=== PATIENT | male | born 2000 | race African-American/Black ===

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

== ENCOUNTER 2023-10-29 02:43 | Inpatient (IN) ==
--- NOTE | 2023-10-29 03:32 | Emergency Department Note ---
Impression & Plan Anxiety, Depression, Hallucinations ED Provider Note ED Provider Note NAME: TATY CANALES AGE:23 SEX: Male : 2000 ARRIVES VIA: EMS INFORMANT: Patient ED PROVIDER(s): Elana Sequeira DO CHIEF COMPLAINT: Anxiety HPI: This is a 23-year-old male presents emergency department stating he was told he had to come here by cook's assistant after he called 911 due to concern for increased anxiety. Patient with recent inpatient mental health treatment and initiation of Zoloft. Patient admits to both anxiety and depression. He admits to history of SI but no prior attempt. Patient states "I am tired of dealing with all of it" and describes frustration over trying to arrange job interviews. Patient admits to use of tobacco products, alcohol, and marijuana to cope with his anxiety and depression. PAST MEDICAL HISTORY:See Below PAST SURGICAL HISTORY:See Below FAMILY HISTORY:See Below SOCIAL HISTORY:See Below HOME MEDICATIONS:See Below ALLERGIES:See Below VITALS:See Below PHYSICAL EXAMINATION: GENERAL: alert, anxious appearing, well nourished, no distress, non-toxic EYE EXAM: normal conjunctiva, PERRL and EOM's grossly intact NECK: supple, no nuchal rigidity, FROM LUNGS: Clear to auscultation. Normal chest wall mechanics, no w/r/r HEART: no murmurs, S1 normal and S2 normal ABDOMEN: abdomen soft, non-tender, normo-active bowel sounds, no masses, no rebound or guarding. SKIN: no rashes, petechiae, orbruising UPPER EXTREMITIES: upper extremities are grossly normal. FROM, nml pulses b/l. LOWER EXTREMITIES: No pitting edema. FROM, nml pulses b/l. NEURO EXAM: Normal sensorium, cranial nerves II-XII grossly intact, normal speech, no facial droop,nogross weakness of arms, no gross weakness of legs. Gross sensation intact. No ataxia. Vital Signs: reviewed and remarkable Differential Diagnosis: mood disorder, suicidal ideation, anxiety, depression, substance abuse, toxidrome, infection, hypoglycemia, electrolyte abnormalities, ICH as well as others were considered. MEDICAL DECISION MAKING: This is a 23-year-old male who presents due to concern for anxiety and depression. Upon discussion with case management he also admitted to command hallucinations. He admits to suicidal ideation however no plan and no prior attempt. After discussion with him I did involve case management who came and evaluated patient bedside as well. They did remember the patient from 2 weeks ago when he was placed inpatient due to acute psychosis. Labs and urine collected and sent per protocol. These were reassuring. Patient does admit to marijuana use as a coping strategy for his anxiety and depression as well as the hallucinations. Patient does not appear actively intoxicated. Case management refer the patient to [facility] who evaluated the patient and accepted him to their unit for additional inpatient mental health treatment. Consultation(s): 0335: Discussed with case management who did see the patient at bedside. Patient also admits to command hallucinations. ER Treatment Provided: See below Diagnostics Interpreted By Me: -Laboratory studies: As stated above and show below. Triage Nursing Note Reviewed Prior/Outside Records Reviewed Past Med/Surg History Problem List (Updated 10/29/23 @ 23:05 by Elana Sequeira DO) Hallucinations (Acute) Depression (Acute) Psychosis (Acute) Brain tumor (benign) Post traumatic stress disorder (PTSD) Bipolar disorder (Acute) Asthma with acute exacerbation (Acute) Allergic rhinitis Anxiety (Acute) Atopic dermatitis Attention deficit disorder without hyperactivity Extrinsic asthma Oppositional defiant disorder Medical History Depression with suicidal ideation Depression Suicidal ideations No chronic diseases present Surgical History Status post tracheostomy No significant past surgical history Family History Unknown Adopted Social History Smoking Status: Current some day smoker Tobacco Type: E-cigarettes / Vaping Hx Substance Use: Yes Preferred Language: Cypriot Communication Ability: Effective 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: No Beliefs That Will Affect Care: None 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 Feels Safe at Home: Yes Gender Identity: Male Assistive Devices: None Allergies Allergies Allergy/AdvReac Type Severity Reaction Status Date / Time animal dander Allergy Intermediate CONGESTION, Verified 10/29/23 03:06 COUGH, SHORT OF BREATH WITH PROLONGED EXPOSURE pollen extracts Allergy Intermediate CONGESTION, Verified 10/29/23 03:06 COUGH, SHORT OF BREATH WITH PROLONGED EXPOSURE Home Meds Home Medications Medication Instructions Recorded Confirmed nicotine (polacrilex) 4 mg gum 4 mg PO DIRECTED PRN Smoking 10/29/23 10/29/23 Cessation sertraline 50 mg tablet 50 mg PO DAILY 10/29/23 10/29/23 Results & Data (ED) Vital Signs Vital Signs - 24 hr 10/29/23 02:48 Temperature 36.8 C Temperature Source Axillary Pulse Rate 84 Respiratory Rate 18 Respiratory Effort / Characteristics Non-Labored Spontaneous Respiratory Depth Normal Blood Pressure 129/93 Blood Pressure Mean 105 Pulse Oximetry 99 Oxygen Delivery Method Room Air Sepsis Recent Fever Within 48 Hours No Sepsis New/Unexplained Change in Mental Status N/A Sepsis Action Taken by Nursing No Action Required Laboratory Data 10/29/23 03:55 10/29/23 03:55 Lab Results 10/29/23 10/29/23 Range/Units 03:55 03:59 WBC 8.12 (4.8-10.8) K/ul RBC 5.63 (4.70-6.10) M/uL Hgb 16.9 (14.0-18.0) g/dl Hct 49.0 (42.0-52.0) % MCV 87.0 (80.0-100.0) fL MCH 30.0 (25.0-34.0) pg MCHC 34.5 (32.0-36.0) g/dL RDW Std Deviation 40.9 (36.4-46.3) fL RDW Coeff of [place] 13.0 (11.5-14.5) % Plt Count 207 (130-400) K/uL MPV 9.4 (9.4-12.4) fL Immature Gran % (Auto) 0.2 % Neut % (Auto) 52.2 % Lymph % (Auto) 34.5 % [place] % (Auto) 8.4 % Eos % (Auto) 4.1 % Baso % (Auto) 0.6 % Neut # (Auto) 4.24 (1.40-6.50) K/uL Lymph # (Auto) 2.80 (1.20-3.40) K/uL [place] # (Auto) 0.68 H (0.11-0.59) K/uL Eos # (Auto) 0.33 (0.00-0.50) K/uL Baso # (Auto) 0.05 (0.00-0.20) K/uL Immature Gran # (Auto) 0.02 (0.01-0.20) K/uL Sodium 140 (136-145) mmol/L Potassium 3.7 (3.5-5.1) mmol/L Chloride 106 (98-107) mmol/L Carbon Dioxide 25 (21-32) mmol/L Anion Gap 9 (3-11) BUN 24 H (6-23) mg/dl Creatinine 1.09 (0.6-1.4) mg/dl Est Cr Clr Drug Dosing 100.2 ml/min Est GFR ( Amer) 111.9 ml/min Est GFR (Non-Af Amer) 96.5 ml/min BUN/Creatinine Ratio 22.0 H (10-20) Glucose 90 (70-99(Fasting)) mg/dl Calcium 10.1 (8.6-10.3) mg/dl Total Bilirubin 0.7 (0.2-1.0) mg/dl AST 23 (13-39) U/L ALT 19 (7-52) U/L Alkaline Phosphatase 105 H (34-104) U/L Total Protein 7.6 (6.0-8.3) gm/dl Albumin 4.8 (3.4-5.0) gm/dl Globulin 2.8 (2.5-4.0) gm/dl Albumin/Globulin Ratio 1.7 (0.9-2) TSH 2.525 (0.300-4.500) uIu/ml Urine Color Yellow Urine Appearance Clear (Clear) Urine pH 6.0 (4.5-7.5) Ur Specific [place] 1.030 (1.000-1.030) Urine Protein Negative (Negative) Urine Glucose (UA) Negative (Negative) Urine Ketones Negative (Negative) Urine Blood Negative (Negative) Urine Nitrite Negative (Negative) Urine Bilirubin Negative (Negative) Urine Urobilinogen Positive H (Negative) Ur Leukocyte Esterase Negative (Negative) Salicylates < 3.0 L (3.0-30) mg/dl Urine Opiates Screen Neg (Neg) Ur Methadone, Qual Neg (Neg) Urine Fentanyl Screen Neg (Neg) Acetaminophen < 3 L (10-30) ug/ml Urine Barbiturates Neg (Neg) Ur Phencyclidine (PCP) Neg (Neg) U Amphetamin/Meth Scrn Neg (Neg) MDMA (Ecstasy) Screen Neg (Neg) U Benzodiazepines Scrn Neg (Neg) Ur Cocaine Metabolite Neg (Neg) U Marijuana (THC) Screen Pos H (Neg) Ethyl Alcohol mg/dL < 10.0 (<10.0) mg/dl SARS-CoV-2, RNA, NAAT NEGATIVE (NEGATIVE) Administered Medications Miscellaneous (Remove Nicoderm Patch) 1 each N/A DAILY@0859 [facility] Stop: 11/28/23 08:58 Last Admin: 10/29/23 11:00 Dose: Not Given Documented By: EMRE Nicotine (Nicotine 14 Mg/24 Hr Patch) 1 patch TD QAM [facility] Stop: 11/28/23 08:59 Last Admin: 10/29/23 10:59 Dose: 1 patch Documented By: EMRE Olanzapine (Olanzapine 5 Mg Tablet) 5 mg PO BID [facility] Stop: 11/28/23 08:59 Last Admin: 10/29/23 21:04 Dose: 5 mg Documented By: Admin: 10/29/23 11:00 Dose: 5 mg Documented By: EMRE Discharge Plan Visit Data Chief Complaint: Anxiety Stated Complaint: Anxiety ED Provider: Snow Dobbs Discharge Problem: Anxiety, Depression, Hallucinations Patient Disposition: Admitted As Inpatient Discharge Instructions Interventions: ED Discharge Assessment Last Done: 10/29/23 07:47
[2023-10-29 04:19] LABS: Appearance Urine Clear (Clear); Bilirubin Urine Negative (Negative); Blood Urine Negative (Negative); Color Urine Yellow; Glucose Urine UA Negative (Negative); Ketones Urine Negative (Negative); Leukocyte Esterase Urine Negative (Negative); Nitrite Urine Negative (Negative); Protein Urine Negative (Negative); Urobilinogen Urine Positive (Negative)
[2023-10-29 04:19] LABS: Basophils # (auto) 0.05 K/uL (0.00-0.20); Basophils % (auto) 0.6 %; Eosinophils # (auto) 0.33 K/uL (0.00-0.50); Eosinophils % (auto) 4.1 %; Hemoglobin 16.9 g/dl (14.0-18.0); Immature Granulocytes # (auto) 0.02 K/uL (0.01-0.20); Immature Granulocytes % (auto) 0.2 %; Lymphocytes % (auto) 34.5 %; Mean Corpuscular Hgb Conc 34.5 g/dL (32.0-36.0); Mean Platelet Volume 9.4 fL (9.4-12.4); Monocytes # (auto) 0.68 K/uL (0.11-0.59); Monocytes % (auto) 8.4 %; Neutrophils # (auto) 4.24 K/uL (1.40-6.50); Neutrophils % (auto) 52.2 %; Platelet Count 207 K/uL (130-400); RDW Standard Deviation 40.9 fL (36.4-46.3); Red Blood Count 5.63 M/uL (4.70-6.10); White Blood Count 8.12 K/ul (4.8-10.8)
[2023-10-29 04:35] LABS: Albumin Level 4.8 gm/dl (3.4-5.0); Calcium 10.1 mg/dl (8.6-10.3)
[2023-10-29 04:43] LABS: Creatinine Clr Calc Pharmacy 100.2 ml/min; Est GFR (African American) 111.9 ml/min; Est GFR (Non-African American) 96.5 ml/min; Potassium 3.7 mmol/L (3.5-5.1)
[2023-10-29 04:52] LABS: Albumin Globulin Ratio 1.7 (0.9-2); Bilirubin,Total 0.7 mg/dl (0.2-1.0); Globulin 2.8 gm/dl (2.5-4.0); Thyroid Stimulating Hormone 2.525 uIu/ml (0.300-4.500); Total Protein 7.6 gm/dl (6.0-8.3)
[2023-10-29 05:43] LABS: Acetaminophen < 3 ug/ml (10-30); Salicylate < 3.0 mg/dl (3.0-30)
[2023-10-29 05:43] LABS: Amphetamines+Metham, Urine Neg (Neg); Barbiturates, Urine Neg (Neg); Benzodiazepine, Urine Neg (Neg); Cocaine, Urine Neg (Neg); Fentanyl, Urine Neg (Neg); MDMA (Ecstacy), Urine Neg (Neg); Marijuana, Urine Pos (Neg); Methadone, Urine Neg (Neg); Opiate, Urine Neg (Neg); Phencyclidine, Urine Neg (Neg)
[2023-10-29] MEDS ORDERED: hydrOXYzine HCl 25 MG TAB PO PRN (08:05)
[2023-10-29] MEDS ORDERED: BISMUTH SUBSALICYLATE LIQD 236 ML PO PRN (08:05)
[2023-10-29] MEDS ORDERED: SODIUM CHLORIDE 0.65% NA SOLN 45 ML (OCEAN) PRN (08:05)
[2023-10-29] MEDS ORDERED: MAGNESIUM HYDROXIDE SUSP 30 ML UDC PO PRN (08:05)
[2023-10-29] MEDS ORDERED: ALUMINUM/MAGNESIUM SUSP 30 ML UDC PO PRN (08:05)
--- NOTE | 2023-10-29 09:16 | History & Physical ---
Date of Service October 29, 2023 Impression / Recommendations Impression CRISTOBAL CANALES is a 23-year-old M who is currently without housing, has a history of attachment issues/PTSD, bipolar disorder, impulsivity related to hx of ADHD, and was admitted on 10/29/23 06:47 on a 201 voluntary commitment for psychosis. Diagnostically consistent with unspecified psychosis with broad differential including primary psychotic disorder (schizophrenia spectrum) vs mixed or tip episode of BPAD (hx of BPAD per chart, reported poor sleep in last 24 hours but presents as very tired, doesn't present with any other classic signs of acute tip given no psychomotor activation/grandiosity or rapid speech except is having hyperreligious beliefs/delusions) vs substance-induced psychosis (UDS positive for cannabis, recently at the [facility] and reportedly only discharged on an SSRI with improvement which is more suggestive of substance-induced) vs trauma-related (hx PTSD but unlikely given level of psychosis, thought blocked, paranoia). He was unable to participate in any type of meaningful conversation about his medications and psychiatric medication options for treating psychosis. For now will hold sertraline given possibility for mixed/manic episode pending records from the [facility] and will start olanzapine for psychosis and to help with sleep. Will get fasting lipid and glucose labwork and attempted AIMS, no evidence of any abnormal or involuntary movements at baseline, current score of 0. MNPR due to extreme paranoia with inability to tolerate a roommate, psychosis, delusions Overall I spent a total of 55 minutes for this admission including review of chart records, review of labwork, direct evaluation of the patient, counseling the patient, ordering medication, risk assessment, discussion with the psychiatric liason RN and documentation in the electronic health record. (1) Psychosis: Psychosis type: unspecified psychosis type Qualified Code(s): F29 - Unspecified psychosis not due to a substance or known physiological condition (2) Post traumatic stress disorder (PTSD): (3) Bipolar disorder: (4) Anxiety: Plan 10/29/2023: The patient was admitted to the [facility]) on q15 min checks (behavioral with suicide precautions) for safety. The patient will participate in group, recreational, and milieu therapies and will be offered additional individual and family sessions as clinically appropriate. -Start olanzapine 5mg BID -Hold sertraline for now -Haldol 5mg po daily prn and ativan 2mg po daily prn for acute agitation/psychosis Inventory Assets Strengths: willing to get treatment, motivated to get a job Needs: safety and stabilization, medication adjustment, additional coping skills, increased outpatient services Suicide Risk Level Suicide Risk Level: Moderate (q15 min suicide checks) (denied SI but with psychosis, confusion, delusions and history of prior attempts vs gestures, feels safe in the hospital) Suicide Risk Level Comments: Risk Factors Assessment Male: Yes : No Do You Have Access To A Gun?: Yes (unknown, will have to assess again as his thought process becomes more orga) Mental Health Diagnoses: Yes Previous Attempt: Yes Previous Psychiatric Hospitalization: Yes Psychiatric History Identifying Data CRISTOBAL CANALES is a 23-year-old M who is currently without housing, has a history of attachment issues/PTSD, bipolar disorder, impulsivity related to hx of ADHD, and was admitted on 10/29/23 06:47 on a 201 voluntary commitment for psychosis. Chief Complaint "Heaven is at hand" History of Present Illness Cristobal was admitted after presenting voluntarily to the emergency room at recommendation of lab aide after calling 911 and requesting help for increased anxiety. In the emergency room he reported feeling overwhelmed by daily tasks such as arranging job interviews and feeling tired "of dealing with all of it". Per chart review he was in the emergency room about two weeks ago and at that time was responding to internal stimuli, showing signs of acute psychosis, and was paranoid including only communicating with the ED CM via writing due to his concerns that the nurses were listening to their conversations. He was admitted the [facility] on a 302 commitment and apparently while there started on sertraline. Since leaving the [facility] he has not engaged in any aftercare, unclear if anything was arranged for him. On presentation to the ED overnight CM notes indicate that he was demonstrating symptoms of thought blocking, seemed to be responding to internal stimuli, was "trying to figure out the puzzle of what God has planned for him in life", and seemed to have some confusion. He also reported a lack of sleep in the last 24 hours. On admission today he communicates with me initially via non-verbal hand signals (gives a thumbs up, shakes his hand to indicate so-so) and attempts to mouth words to me (I couldn't interpret them). When offered the option to write he acc epted pen and paper. When asked about the reasons for his hospitalization, mood, recent stressors he writes "I have to be hidalgo", "I don't wanna mess up" and "Zachariahn is a hand". He was unable to participate with any further assessment but was agreeable to going to the main area of the unit so he could have breakfast and asked me in a whispered voice for water when asked about desire for a beverage. Unable to assess psychiatric ROS. Reportedly has been taking sertraline 50mg daily since leaving the [facility]. Past Psychiatric History Current Psychiatric Diagnosis: PTSD, Bipolar Outpatient Services: unknown Previous Psych Admissions: multiple last at [facility] in mid-October last on [facility] in Mar 2021 for SI Do You Have Access To A Gun?: Yes (unknown, will have to assess again as his thought process becomes more orga) History of Previous Suicide Attempt: Yes Describe Attempts in the Past: unclear-hx of near attempts via OD (had in his mouth) and hx cutting Past Medication Trials: per chart review: multiple that he cannot recall, Vraylar caused nausea, Depakote, Prozac has been main antidepressant given compliance issues and long half life, trazodone, Geodon, Abilify Allergies Allergy/AdvReac Type Severity Reaction Status Date / Time animal dander Allergy Intermediate CONGESTION, Verified 10/29/23 03:06 COUGH, SHORT OF BREATH WITH PROLONGED EXPOSURE pollen extracts Allergy Intermediate CONGESTION, Verified 10/29/23 03:06 COUGH, SHORT OF BREATH WITH PROLONGED EXPOSURE Home Medications Medication Instructions Recorded Confirmed Type nicotine (polacrilex) 4 mg gum 4 mg PO DIRECTED PRN Smoking 10/29/23 10/29/23 History Cessation sertraline 50 mg tablet 50 mg PO DAILY 10/29/23 10/29/23 History Family History Family History of: Doesn't Know Family Mental Health History Comment: adopted Alcohol History Hx of Alcohol Use Over the Past 12 Months: No Smoking Use Have You Smoked or Used Tobacco Products in the Last 30 Days: Yes tobacco type: cigarettes Smoking Status: Current some day smoker Smoking packs per day: 0.5 Substance History Hx of Prescription Med Misuse Over the Past 12 Months: No Hx of Over the Counter Med Misuse Over the Past 12 Months: No Hx of Inhalent Misuse Over the Past 12 Months: No Hx of Organic Substance Use Over the Past 12 Months: Yes (Marijuana, last use unknown) Hx of Illegal Substances/Street Drug Use Over Past 12 Months: No Problems as a Result of Past Substance Use: None Identified UDS positive for cannabis Personal History Living Arrangements: Homeless Born In: [place] area Employment Status: Unemployed Beliefs That Will Affect Care: None Hx Traumatic Life Events: Yes (early neglect, won't elaborate) Patient History Medical History Depression with suicidal ideation Depression Suicidal ideations No chronic diseases present Surgical History Status post tracheostomy No significant past surgical history Family History Unknown Adopted Social History Smoking Status: Current some day smoker Tobacco Type: E-cigarettes / Vaping Hx Substance Use: Yes Preferred Language: Persian Communication Ability: Effective Practice Administrator Required: No Beliefs That Will Affect Care: None 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 Feels Safe at Home: Yes Gender Identity: Male Assistive Devices: None Review of Systems Review of Systems: Unobtainable due to mental health condition Physical Exam Psychiatric: Orientation: alert, oriented to person and oriented to place Apperance: appropriately dressed and + disheveled Eye Contact: + poor eye contact Motor Behavior: no abnormal motor movements Speech: + abnormal rate/rhythm/volume of speech (whispered, brief) Affect: + anxious affect Mood: + anxious mood Thought Process: + thought blocking and + looseness of associations Thought Content: + paranoid, + delusions and + persecution Suicidal Thoughts: denies suicidal thoughts Homicidal Thoughts: denies homicidal thoughts Hallucinations: + auditory hallucinations Insight: + limited insight Judgment: + limited judgement Vital Signs (Past 24 Hours): Last Vital Signs Temp 36.8 C 10/29/23 08:23 Pulse 80 10/29/23 08:23 Resp 16 10/29/23 08:23 BP 127/84 10/29/23 08:23 Pulse Ox 96 10/29/23 08:23 O2 Del Method Room Air 10/29/23 08:23 Exam Statement: A physical exam was performed in the ED by Dr. Pheasant for the purposes of medical clearance. I accept that physical as correct and adequate for the purposes of the inpatient physical exam. Results & Data ([facility]) Laboratory Results Laboratory Results - last 24 hr 10/29/23 10/29/23 03:55 03:59 WBC 8.12 RBC 5.63 Hgb 16.9 Hct 49.0 MCV 87.0 MCH 30.0 MCHC 34.5 RDW Std Deviation 40.9 RDW Coeff of [place] 13.0 Plt Count 207 MPV 9.4 Immature Gran % (Auto) 0.2 Neut % (Auto) 52.2 Lymph % (Auto) 34.5 [place] % (Auto) 8.4 Eos % (Auto) 4.1 Baso % (Auto) 0.6 Neut # (Auto) 4.24 Lymph # (Auto) 2.80 [place] # (Auto) 0.68 H Eos # (Auto) 0.33 Baso # (Auto) 0.05 Immature Gran # (Auto) 0.02 Sodium 140 Potassium 3.7 Chloride 106 Carbon Dioxide 25 Anion Gap 9 BUN 24 H Creatinine 1.09 Est Cr Clr Drug Dosing 100.2 Est GFR ( Amer) 111.9 Est GFR (Non-Af Amer) 96.5 BUN/Creatinine Ratio 22.0 H Glucose 90 Calcium 10.1 Total Bilirubin 0.7 AST 23 ALT 19 Alkaline Phosphatase 105 H Total Protein 7.6 Albumin 4.8 Globulin 2.8 Albumin/Globulin Ratio 1.7 TSH 2.525 Urine Color Yellow Urine Appearance Clear Urine pH 6.0 Ur Specific [place] 1.030 Urine Protein Negative Urine Glucose (UA) Negative Urine Ketones Negative Urine Blood Negative Urine Nitrite Negative Urine Bilirubin Negative Urine Urobilinogen Positive H Ur Leukocyte Esterase Negative Salicylates < 3.0 L Urine Opiates Screen Neg Ur Methadone, Qual Neg Urine Fentanyl Screen Neg Acetaminophen < 3 L Urine Barbiturates Neg Ur Phencyclidine (PCP) Neg U Amphetamin/Meth Scrn Neg MDMA (Ecstasy) Screen Neg U Benzodiazepines Scrn Neg Ur Cocaine Metabolite Neg U Marijuana (THC) Screen Pos H U Marijuana THC Carboxy Pending Drug Screen Comment Pending Ethyl Alcohol mg/dL < 10.0 SARS-CoV-2, RNA, NAAT NEGATIVE Current Inpatient Medications Current Inpatient Medications: Current Inpatient Medications Acetaminophen (Acetaminophen 325 Mg Tab) 650 mg PO Q4H PRN PRN Reason: Headache or Minor Fever Stop: 11/28/23 08:04 Al Hydrox/Mg Hydrox/Simethicone (Aluminum/Magnesium Susp 30 Ml Udc) 30 ml PO Q4H PRN PRN Reason: GI Upset Stop: 11/28/23 08:04 Bismuth Subsalicylate (Bismuth Subsalicylate Liqd 236 Ml) 15 ml PO PRN PRN PRN Reason: Loose Stool Stop: 11/28/23 08:04 Hydroxyzine HCl (Hydroxyzine Hcl 25 Mg Tab) 50 mg PO HSZ PRN PRN Reason: Insomnia Stop: 11/28/23 08:04 Hydroxyzine HCl (Hydroxyzine Hcl 25 Mg Tab) 25 mg PO Q4H PRN PRN Reason: Anxiety Stop: 11/28/23 08:04 Magnesium Hydroxide (Magnesium Hydroxide Susp 30 Ml Udc) 30 ml PO DAILY PRN PRN Reason: Constipation Stop: 11/28/23 08:04 Miscellaneous (Remove Nicoderm Patch) 1 each N/A DAILY@0859 [facility] Stop: 11/28/23 08:58 Nicotine (Nicotine 14 Mg/24 Hr Patch) 1 patch TD QAM [facility] Stop: 11/28/23 08:59 Olanzapine (Olanzapine 5 Mg Tablet) 5 mg PO BID [facility] Stop: 11/28/23 08:59 Sodium Chloride (Sodium Chloride 0.65% Na Soln 45 Ml ([place])) 1 - 2 sprays NA PRN PRN PRN Reason: Nasal Dryness/Congestion Stop: 11/28/23 08:04
[2023-10-29] MEDS: NICOTINE 14 MG/24 HR PATCH TD SCH (10:59)
[2023-10-29] MEDS: OLANZapine 5 MG TABLET PO SCH (11:00)
[2023-10-29] MEDS ORDERED: haloperidoL 5 MG TAB PO PRN (11:36)
[2023-10-29] MEDS ORDERED: LORazepam 1 MG TAB PO PRN (11:36)
--- NOTE | 2023-10-29 14:13 | Emergency Department Note ---
ED Visit Note I received this patient in signout at the change of shift from Dr. Elana Sequeira pending evaluation by [facility]. for admission on a voluntary basis. The 201 was signed. The patient was accepted for admission. He was transferred to their unit without incident. Please refer to previous documentation for further detail of the history, physical and visit. .
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
[2023-10-30] MEDS: ACETAMINOPHEN 325 MG TAB PO PRN (20:02)
[2023-10-30] MEDS: ARIPiprazole 10 MG TAB PO SCH (21:21)
[2023-10-30] MEDS: LORazepam 1 MG TAB PO SCH (21:22)
[2023-10-31 08:16] LABS: Chol HDL Ratio 2.7 (0-5)
[2023-10-31 08:33] LABS: Estimated Average Glucose 103 mg/dl; Hemoglobin A1C 5.2 % (4.5-5.6)
[2023-10-31 09:41] LABS: Marijuana Quant, GCMS Urine 62 ng/mL (<5)
[2023-10-31] MEDS ORDERED: ALBUTEROL HFA 8 GM INHALER INH PRN (12:04)
[2023-10-31] MEDS ORDERED: LORazepam 1 MG TAB PO PRN (12:08)
[2023-10-31] MEDS: SODIUM CHLORIDE 0.65% NA SOLN 45 ML (OCEAN) SCH (12:55)
[2023-10-31] MEDS: CETIRIZINE HCL 10 MG TABLET PO SCH (13:00)
[2023-10-31] MEDS: guaiFENesin 600 MG TABCR PO SCH (13:00)
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
[2023-10-31] MEDS: ARIPiprazole 15 MG TAB PO SCH (21:03)
[2023-10-31] MEDS: OLANZapine 5 MG TABLET PO SCH (21:03)
[2023-10-31] MEDS: LORazepam 0.5 MG TAB PO SCH (21:09)
[2023-10-31] MEDS: hydrOXYzine HCl 25 MG TAB PO PRN (22:19)
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
[2023-11-01] MEDS: SERTRALINE HCL 50 MG TABLET PO SCH (14:25)
[2023-11-01] MEDS: ARIPiprazole 10 MG TAB PO SCH (20:38)
[2023-11-02] MEDS ORDERED: guaiFENesin 600 MG TABCR PO PRN (12:12)
[2023-11-02] MEDS: NICOTINE POLACRILEX 2 MG GUM MT PRN (13:01)
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
[2023-11-03] MEDS: ARIPiprazole 400 MG PRE-FILLED SYRINGE IM SCH (11:01)
--- NOTE | 2023-11-03 11:02 | Discharge Summary ---
Date of Service November 03, 2023 History of Present Illness Cristobal was admitted after presenting voluntarily to the emergency room at recommendation of applications instructor after calling 911 and requesting help for increased anxiety. In the emergency room he reported feeling overwhelmed by daily tasks such as arranging job interviews and feeling tired "of dealing with all of it". Per chart review he was in the emergency room about two weeks ago and at that time was responding to internal stimuli, showing signs of acute psychosis, and was paranoid including only communicating with the ED CM via writing due to his concerns that the nurses were listening to their conversations. He was admitted the [facility] on a 302 commitment and apparently while there started on sertraline. Since leaving the [facility] he has not engaged in any aftercare, unclear if anything was arranged for him. On presentation to the ED overnight CM notes indicate that he was demonstrating symptoms of thought blocking, seemed to be responding to internal stimuli, was "trying to figure out the puzzle of what God has planned for him in life", and seemed to have some confusion. He also reported a lack of sleep in the last 24 hours. On admission today he communicates with me initially via non-verbal hand signals (gives a thumbs up, shakes his hand to indicate so-so) and attempts to mouth words to me (I couldn't interpret them). When offered the option to write he accepted pen and paper. When asked about the reasons for his hospitalization, mood, recent stressors he writes "I have to be hidalgo", "I don't wanna mess up" and "Heaven is a hand". He was unable to participate with any further assessment but was agreeable to going to the main area of the unit so he could have breakfast and asked me in a whispered voice for water when asked about desire for a beverage. Unable to assess psychiatric ROS. Reportedly has been taking sertraline 50mg daily since leaving the [facility]. Physical Exam Mental Examination Appearance: Unkempt Eye Contact: Maintains Eye Contact Motor Behavior: Unremarkable Speech: Normal Mood: Euthymic Affect: Congruent and Constricted Thought Process: Intact (slightly disorganized at times) Thought Content: Intact Hallucinations: Auditory Insight: Poor (improved) Judgement: Poor Vital Signs (Past 24 Hours) Last Vital Signs Temp 36.5 C 11/03/23 06:42 Pulse 92 H 11/03/23 06:43 Resp 16 07/31/24 06:42 BP 128/85 11/03/23 06:43 Pulse Ox 96 10/29/23 08:23 O2 Del Method Room Air 10/29/23 08:23 Principal Diagnosis Complex PTSD Psychiatric Data See daily stay summary. In short, safety was maintained and the patient was cooperative with care. Medication changes included starting Abilify 20mg HS and transitioning to Maintena 400mg [id number], restarting home sertraline 50mg daily and they tolerated this well. A family session was held and safety plan was completed prior to discharge. Counselled about CPTSD, CBT, and treatment strategies. Day of Discharge Assessment Today the patient voices readiness for discharge. They note improvement in mood and deny thoughts to harm self or others. Thoughts remain organized and they are improved from admission. There is no evidence of psychosis. They agree to take mediations as prescribed and keep follow-up appointments. They are stable for discharge to outpatient level of care. Transition of Care Transition Of Care Record: was reviewed with the patient Advance Directives Advance Directives Information Provided: Yes Advance Directives: No Mental Health Advance Directive: No Advance Directives on File: No Living Will: No Power of Mill Tender: No Advance Directives Reason:: Declines as Mental Health Visit. Suicide Risk Level Suicide Risk Level Comments: Risk Factors Assessment Male: Yes : No Do You Have Access To A Gun?: Yes (unknown, will have to assess again as his thought process becomes more orga) Mental Health Diagnoses: Yes Previous Attempt: Yes Previous Psychiatric Hospitalization: Yes Discharge Data Lab Results 10/29/23 10/29/23 10/31/23 03:55 03:59 07:22 WBC 8.12 RBC 5.63 Hgb 16.9 Hct 49.0 MCV 87.0 MCH 30.0 MCHC 34.5 RDW Std Deviation 40.9 RDW Coeff of Mariana 13.0 Plt Count 207 MPV 9.4 Immature Gran % (Auto) 0.2 Neut % (Auto) 52.2 Lymph % (Auto) 34.5 Motley % (Auto) 8.4 Eos % (Auto) 4.1 Baso % (Auto) 0.6 Neut # (Auto) 4.24 Lymph # (Auto) 2.80 Motley # (Auto) 0.68 H Eos # (Auto) 0.33 Baso # (Auto) 0.05 Immature Gran # (Auto) 0.02 Sodium 140 Potassium 3.7 Chloride 106 Carbon Dioxide 25 Anion Gap 9 BUN 24 H Creatinine 1.09 Est Cr Clr Drug Dosing 100.2 Est GFR ( Amer) 111.9 Est GFR (Non-Af Amer) 96.5 BUN/Creatinine Ratio 22.0 H Glucose 90 Estimat Average Glucose 103 Hemoglobin A1c 5.2 Calcium 10.1 Total Bilirubin 0.7 AST 23 ALT 19 Alkaline Phosphatase 105 H Total Protein 7.6 Albumin 4.8 Globulin 2.8 Albumin/Globulin Ratio 1.7 Triglycerides 70 Cholesterol 157 LDL Cholesterol, Calc 85 VLDL Cholesterol, Calc 14 HDL Cholesterol 58 Cholesterol/HDL Ratio 2.7 TSH 2.525 Urine Color Yellow Urine Appearance Clear Urine pH 6.0 Ur Specific Pevely 1.030 Urine Protein Negative Urine Glucose (UA) Negative Urine Ketones Negative Urine Blood Negative Urine Nitrite Negative Urine Bilirubin Negative Urine Urobilinogen Positive H Ur Leukocyte Esterase Negative Salicylates < 3.0 L Urine Opiates Screen Neg Ur Methadone, Qual Neg Urine Fentanyl Screen Neg Acetaminophen < 3 L Urine Barbiturates Neg Ur Phencyclidine (PCP) Neg U Amphetamin/Meth Scrn Neg MDMA (Ecstasy) Screen Neg U Benzodiazepines Scrn Neg Ur Cocaine Metabolite Neg U Marijuana (THC) Screen Pos H U Marijuana THC Carboxy 62 H Drug Screen Comment SEE NOTE Ethyl Alcohol mg/dL < 10.0 SARS-CoV-2, RNA, NAAT NEGATIVE Hospital Course (1) Complex posttraumatic stress disorder: (2) Bipolar disorder: Plan 11/02/2023: Discontinue lorazepam. Continue Abilify 20 mg at night. Planning towards long-acting injection. Administer international trauma questionnaire. 11/01/2023: Discontinue olanzapine. Continue lorazepam. Increase Abilify to 20 mg at bedtime. Start sertraline 50 mg daily. Administer dissociative symptom scale and adverse childhood experiences scale. 10/31/2023: Increase Abilify to 15 mg at bedtime. Decrease olanzapine to 5 mg at bedtime. Decrease lorazepam to 0.5 mg at bedtime. 10/30/2023: Start Abilify 10 mg at bedtime. Start lorazepam 1 mg at bedtime. Labs: A1c, fasting lipid panel. to establish CM referral. 10/29/2023: The patient was admitted to the [facility] ([facility]) on q15 min checks (behavioral with suicide precautions) for safety. The patient will participate in group, recreational, and milieu therapies and will be offered additional individual and family sessions as clinically appropriate. -Start olanzapine 5mg BID -Hold sertraline for now -Haldol 5mg po daily prn and ativan 2mg po daily prn for acute agitation/psychosis Mental Health & Subst Abuse Tx Psychiatrist Name of Psychiatrist: Rafael Therapist Name of Therapist: N/A Mounter Saxophones Name of Mounter Saxophones: [facility] - Phone Number for Mounter Saxophones: Case Management Appointment Comment: Your BCM will follow up with you in the community. Post Discharge Appointments Primary Care Physician Name Of Family Doctor/PCP: Azar Davies [facility] Date of Future Appointment with PCP: 11/10/23 Time of Appointment with PCP: 10:45 AM arrival Provider Appointment Comment: Deniz Garcia Family Freelance Writer Name of Specialist: Azar PCP- Karuna FERREIRA) Apryl Garcia Phone Number for Specialist: [phone] Date of Appointment with Specialist: 12/01/23 Time of Appointment with Specialist: 1:40 Specialty Appointment Comment: please arrive at 1:25 and bring Sangita Madrigalna with you to this appt. Contact Information Discharge Discharge Address: [place] of the Cold: [address] [place] [address] Discharge Plan Discharge Items Patient Disposition: Home - Self-Care Reason For Visit: UNSPECIFED PSYCHOSIS Discharge Diagnosis: Complex PTSD Condition on Discharge: Fair Activity: Resume your previous activity Non-emergency contact: Primary Care Provider and Financial Systems Analyst Call non-emergency contact if: you have any medication questions and your symptoms worsen Follow-up/Referrals: Jean Pierre Davies MD [Primary Care Provider] - Diet: Regular Addtl Attending Provider Instructions: -Continue Abilify 20mg daily for 2 weeks, then STOP -Get Monthly Abilify Maintena 400mg shots Q4 weeks, next shot should be 12/01/23 -if feeling increasingly restless or agitated and this persists, then contact outpatient doctor -Continue Sertraline 50mg daily Pending Studies at Discharge: No Stand-Alone Forms: My [facility], Smoking Cessation Medications and DC Order Prescriptions: New albuterol sulfate [Ventolin HFA] 90 mcg/actuation Hfa Aerosol Inhaler 1 puff inhalation Q2H PRN (Reason: shortness of breath or wheezing) Qty: 1 0RF aripiprazole 20 mg tablet 20 mg PO DAILY Qty: 15 0RF Abilify Maintena 400 mg Suspension,Extended Rel Syring 400 mg IM Q4WK Qty: 1 0RF Rx Instructions: Next shot on 12/01/23 sertraline 50 mg Tablet 50 mg PO QAM Qty: 30 1RF hydroxyzine HCl 50 mg tablet 50 mg PO DAILY PRN (Reason: anxiety, insomnia) Qty: 30 0RF Continued nicotine (polacrilex) 4 mg gum 4 mg PO DIRECTED PRN (Reason: Smoking Cessation) Discontinued sertraline 50 mg tablet 50 mg PO DAILY Discharge Orders: Discharge Order (Routine); Ordered 11/03/23 Ordered By: Farooq Garza Admission Data Admit Date/Time: 10/29/23 06:47 Attending Provider: Alysia Wade Admit Provider: Alysia Wade Primary Care Provider: Jean Pierre Davies Coding [place] [address] D/C day mgmt > 30 min Patient Type Established History Detailed Exam Detailed Medical Decision Making Moderate Complexity Diagnoses Complex posttraumatic stress disorder F43.10 Bipolar disorder F31.9
== END 2023-11-03 14:48 | disposition home or self-care (01) | DRG 882 ==
LOC: ED 02:43 → 3S 06:47